=== PATIENT | male | born 1950 | race Caucasian/White ===

== ENCOUNTER → 2022-01-20 | Outpatient (CLI) | payer OTHER ==
[~2022-01-20] MED LIST: ASCO250C PO; ASPI81TA86 PO; ATEN25TA PO; ATOR40TA75 PO; CLAR1TAB2 PO; FISH100049 PO; FLUT50SP17; INSUNSD SC; INSURSD SC; KETO2AER2 EX; LISI20TA33 PO; METF10004 PO; NAPR-885 PO; NEUR100C PO; OMEP1CAP73 PO; TERA2CAP3 PO; VENL75CA2 PO; VITA50005 PO
== END ==
LOC: M SOG 13:05
PROVIDERS: ATTEND Orthopaedic Surgery
DX: M25.551 Pain in right hip (principal); M47.817 Spondylosis without myelopathy or radiculopathy, lumbosacral region

== ENCOUNTER → 2024-10-27 | Outpatient (CLI) | payer MEDICARE, OTHER ==
[~2024-10-27] MED LIST changes: +INSU100V19 SC; -INSURSD SC
== END ==
LOC: M PLAIMG 12:52
PROVIDERS: ATTEND Registered Nurse
DX: I50.30 Unspecified diastolic (congestive) heart failure (principal); I08.0 Rheumatic disorders of both mitral and aortic valves; I37.1 Nonrheumatic pulmonary valve insufficiency

== ENCOUNTER → 2025-01-22 | Outpatient (CLI) | payer MEDICARE, OTHER ==
[~2025-01-22] MED LIST changes: -INSU100V19 SC; +INSURSDRX SC
== END ==
LOC: M RAD 13:37
PROVIDERS: ATTEND Nurse Practitioner Family
DX: R42 Dizziness and giddiness (principal); I25.10 Atherosclerotic heart disease of native coronary artery without angina pectoris; R09.89 Other specified symptoms and signs involving the circulatory and respiratory systems